=== PATIENT | male | born 1970 | race Two or more races ===

== ENCOUNTER 2023-08-01 20:38 | Emergency (ER) | payer MEDICAID, OTHER ==
[~2023-08-01] VITALS: Ht 165.1 cm; Wt 94.1 kg
[2023-08-01 21:09] VITALS: BP 159/97; PULSE 110; RESP 20; O2SAT 100
== END 2023-08-02 00:41 | disposition left against medical advice (07) ==
LOC: ER 20:38
DX: R30.9 Painful micturition, unspecified (principal); Z53.21 Procedure and treatment not carried out due to patient leaving prior to being seen by health care provider